=== PATIENT | male | born 1985 | race Caucasian/White ===

== ENCOUNTER 2016-10-10 11:50 | Emergency (ER) | payer OTHER ==
--- NOTE | 2016-10-10 12:30 | DIAGNOSTIC IMAGING REPORT ---
PROCEDURE: XR HAND 3 OR 4 VIEWS - RIGHT INDICATION: TRAUMA/INJURY TECHNIQUE: Four views. COMPARISON: None. FINDINGS: Osseous structures and joint spaces are normal. IMPRESSION: 1. Normal right hand.
--- NOTE | 2016-10-11 02:32 | ED CLINICAL REPORT ---
Clinical Report - Physicians/Mid Levels [facility] [address] [place] [address] 10/10/2016 11:55 Patient: CAITY LAGOS Time Seen: 12:40; initial patient contact. Arrived- By private vehicle. Historian- patient. CPT: ER phys charges level 3 plus (#[id number]). HISTORY OF PRESENT ILLNESS Chief Complaint: Injury to the right ring finger. The injury happened just prior to arrival. Occurred at work. The patient sustained a moderate direct blow (Winch bar flipped back and hit hand.). Patient is experiencing moderate pain. No other injury. REVIEW OF SYSTEMS The patient has had swelling. No tingling, numbness, weakness, foreign body or skin laceration. All systems otherwise negative, except as recorded above. PAST HISTORY See nurses notes. Medications: None. Allergies: None. SOCIAL HISTORY Heavy tobacco smoker (cigarette)- less than 1 pack per day. No alcohol use or drug use. ADDITIONAL NOTES The nursing notes have been reviewed. PHYSICAL EXAM Vital Signs: 10/10/2016 12:03 BP: 152/93. HR: 75. RR: 18. O2 saturation: 100%. Temp: 97.9 F. Pain level now: 6/10. Appearance: Alert. Appears to be in pain. Patient in mild distress. Head: Head atraumatic. Eyes: Pupils equal, round and reactive to light. Eyes normal inspection. Skin: Skin warm. Skin intact. Extremities: Right ring finger: moderate tenderness, mild swelling and small ecchymosis of the PIP joint; limited movement secondary to pain. Neurovascular intact distally. No erythema, laceration, abrasion or deformity. No subungual hematoma or amputation present. No wrist injury. Neuro, Vascular and Tendons: Vascular status intact. Sensation intact. Motor intact. Neuro: Oriented X 3. No motor deficit. No sensory deficit. LABS, X-RAYS, AND EKG X-Rays: Right hand negative. PROGRESS AND PROCEDURES Splint Application: Aluminum-foam splint applied to right ring finger. Splint applied by tech with direct supervision by the ED physician. Reassessed extremity following splint application. Neurovascular intact. Follow-up recommended within 7 days. Patient/family counseled. Disposition: Discharged. Condition: stable. CLINICAL IMPRESSION Contusion to the right ring finger.No right fingernail injury. INSTRUCTIONS Apply ice for 15-20 minutes three times a day for one days followed by moist heat 15-20 minutes three times a day for one weeks until better. Wear aluminum splint until better. Lewis tape fingers until better. Limit use of your right hand until better. Return to work tomorrow (light duty for 2 days . Limit use of right hand while wearing splint.). Warnings: GENERAL WARNINGS: Return or contact your physician immediately if your condition worsens or changes unexpectedly, if not improving as expected, or if other problems arise. OTC Medications: Acetaminophen (available over the counter): take according to label instructions. Motrin (available over the counter): take according to label instructions. Follow-up: Follow up with your doctor in one week. Call for an appointment. Understanding of the discharge instructions verbalized by patient. (Electronically signed by Sukhdeep Enriquez MD 10/10/2016 17:02)
--- NOTE | 2016-10-11 02:32 | ED CLINICAL REPORT ---
Clinical Report - Physicians/Mid Levels [facility] [address] [place] [address] 10/10/2016 11:55 Patient: CAITY LAGOS Time Seen: 12:40; initial patient contact. Arrived- By private vehicle. Historian- patient. CPT: ER phys charges level 3 plus (#[id number]). HISTORY OF PRESENT ILLNESS Chief Complaint: Injury to the right ring finger. The injury happened just prior to arrival. Occurred at work. The patient sustained a moderate direct blow (Winch bar flipped back and hit hand.). Patient is experiencing moderate pain. No other injury. REVIEW OF SYSTEMS The patient has had swelling. No tingling, numbness, weakness, foreign body or skin laceration. All systems otherwise negative, except as recorded above. PAST HISTORY See nurses notes. Medications: None. Allergies: None. SOCIAL HISTORY Heavy tobacco smoker (cigarette)- less than 1 pack per day. No alcohol use or drug use. ADDITIONAL NOTES The nursing notes have been reviewed. PHYSICAL EXAM Vital Signs: 10/10/2016 12:03 BP: 152/93. HR: 75. RR: 18. O2 saturation: 100%. Temp: 97.9 F. Pain level now: 6/10. Appearance: Alert. Appears to be in pain. Patient in mild distress. Head: Head atraumatic. Eyes: Pupils equal, round and reactive to light. Eyes normal inspection. Skin: Skin warm. Skin intact. Extremities: Right ring finger: moderate tenderness, mild swelling and small ecchymosis of the PIP joint; limited movement secondary to pain. Neurovascular intact distally. No erythema, laceration, abrasion or deformity. No subungual hematoma or amputation present. No wrist injury. Neuro, Vascular and Tendons: Vascular status intact. Sensation intact. Motor intact. Neuro: Oriented X 3. No motor deficit. No sensory deficit. LABS, X-RAYS, AND EKG X-Rays: Right hand negative. PROGRESS AND PROCEDURES Splint Application: Aluminum-foam splint applied to right ring finger. Splint applied by tech with direct supervision by the ED physician. Reassessed extremity following splint application. Neurovascular intact. Follow-up recommended within 7 days. Patient/family counseled. Disposition: Discharged. Condition: stable. CLINICAL IMPRESSION Contusion to the right ring finger.No right fingernail injury. INSTRUCTIONS Apply ice for 15-20 minutes three times a day for one days followed by moist heat 15-20 minutes three times a day for one weeks until better. Wear aluminum splint until better. Lewis tape fingers until better. Limit use of your right hand until better. Return to work tomorrow (light duty for 2 days . Limit use of right hand while wearing splint.). Warnings: GENERAL WARNINGS: Return or contact your physician immediately if your condition worsens or changes unexpectedly, if not improving as expected, or if other problems arise. OTC Medications: Acetaminophen (available over the counter): take according to label instructions. Motrin (available over the counter): take according to label instructions. Follow-up: Follow up with your doctor in one week. Call for an appointment. Understanding of the discharge instructions verbalized by patient. (Electronically signed by Sukhdeep Enriquez MD 10/10/2016 17:02)
--- NOTE | 2016-10-11 02:32 | ED ORDER SUMMARY ---
..... Patient: CAITY LAGOS OrderSheet [facility] VisitID: [id number] [address] [place] [address] 30y, M Registration Date/Time: 10/10/2016 ORDER SHEET Weight: 136.0 kg (stated) Allergies: None GENERAL ORDERS: Hand 3 or 4V Right Urgent (12:06 10/10/2016 Lynn Spencer per protocol) (Ack 12:12 KHoerner) (12:12 AARONoerner) MEDICATION ORDERS: IV FLUIDS: ORDER SHEET NOTES: [Electronically signed by Dada Katz R.N. (13:17 10/10/2016)] [Electronically signed by Sukhdeep Enriquez MD (17:02 10/10/2016)] [Electronically locked/signed by Dada Katz R.N. (13:17 10/10/2016)]
--- NOTE | 2016-10-11 02:32 | ED NURSING NOTES ---
Clinical Report - Nurses [facility] [address] [place] [address] 10/10/2016 11:55 Patient: CAITY LAGOS TRIAGE Triage time 12:04. Acuity: LEVEL 4. Chief Complaint: INJURY TO RIGHT HAND. 12:04 10/10/16. 12:10/10/16. Alert. No acute distress. SEPSIS SCREEN: Sepsis Screen. Negative (no infection suspected/documented). FERNANDA COMA SCORE: Mckinney Coma Scale: 15- eyes open spontaneously (4); best verbal response- oriented x 4 (5); best motor response- obeys commands (6). --12:08 Dada Katz R.N. 12:03 10/10/16. BP: 152/93. HR: 75. RR: 18. O2 saturation: 100% on room air. Temp: 97.9 F. Pain level now: 01/12. --12:08 Dada Katz R.N. Weight: 136 kg stated. Height/Length: 70 inches Per Patient. BMI: 43. --12:04 Dada Katz R.N. Medications None. --12:05 Dada Katz R.N. Medication/allergy information source: the patient. --12:08 Dada Katz R.N. Allergies None. --12:05 Dada Katz R.N. History Arrived by private vehicle, and accompanied by family. Primary physician ([facility]). 12:04 10/10/16. This occurred today (0900). Occurred at work. Mechanism of injury: a blow. He has had weakness of the right hand. No numbness. 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 PAST MEDICAL HX: Tetanus status: up-to-date. Immunizations: up-to-date. SOCIAL HX: Current every day light tobacco smoker (cigarette)- less than 1/2 a pack per day. No alcohol use or drug use. No infectious disease exposure. ABUSE ASSESSMENT: No report of abuse. FALL RISK ASSESSMENT: Fall risk assessment completed. No fall risk identified. NUTRITIONAL RISK ASSESSMENT: The nutritional risk assessment revealed no deficiencies. FUNCTIONAL ASSESSMENT: Functional assessment: no impairments noted. LEARNING NEEDS ASSESSMENT: The learning needs assessment revealed no barriers. SKIN INTEGRITY ASSESSMENT: Skin integrity risk assessment completed. No skin integrity risk identified. --12:08 Dada Katz R.N. PROBLEMS: Knee Injury. Pharyngitis. --12:05 Dada Katz R.N. ADDITIONAL SURGERIES: L index finger. --12:05 Dada Katz R.N. Assessment 12:10/10/16. --12:08 Dada Katz R.N. Interventions 12:04 10/10/16. 12:10/10/16. ID and allergy band on patient. To treatment room. --12:08 Dada Katz R.N. PHYSICAL ASSESSMENT 12:10/10/16. Ambulatory to room. GENERAL / NEURO / PSYCH: Oriented X 4. Alert. Appears in no acute distress. EXTREMITIES: Capillary refill is less than 2 seconds in the extremities. Extremity pulses are within normal limits. Extremities exhibit normal ROM. Neuro-vascular status intact to the extremity. Right ring finger: tenderness. SKIN: Skin is warm and dry. --12:06 Dada Katz R.N. NURSING PROGRESS NOTES 12:10/10/16. The plan of care for this patient has been created. Cold pack applied. Extremity elevated. Neuro-vascular extremity check. Reassurance given. Two patient identifiers checked. Call light placed in reach. Side rails up x 2. Bed placed in lowest position. Brakes of bed on. Brakes of chair on. Patient ready for evaluation- chart flagged. --12:06 Dada Katz R.N. 12:10/10/16. Patient ready for evaluation- ED physician notified. --12:06 Dada Katz R.N. 12:10/10/16. ( X-ray completed). --12:22 Dada Katz R.N. ( minda taped ring finger and small finger . Applied alumb. splint ,held with coban.). --12:48 Duane, Elva, MONIKA Tech1. DISPOSITION / DISCHARGE 13:13 10/10/16. Condition at departure: improved. The goals identified in the patient's plan of care were met. No learning barriers present. Discharge instructions provided and reviewed with the patient. Reviewed warnings. Reviewed medication(s). Treatments reviewed. Patient verbalized understanding. Written instructions provided in Yi. The patient was discharged by the physician. He was discharged home. He left the Emergency Department ambulatory and via private vehicle. Patient driving. FALL RISK ASSESSMENT: Fall risk assessment completed. No fall risk identified. --13:13 Dada Katz R.N. 13:12 10/10/16. BP: 148/92. HR: 72. RR: 14. O2 saturation: 99% on room air. Temp: 98.1 F (oral). Pain level now: 10/12. --13:13 Dada Katz R.N. 13:14 10/10/16. Departure time: 13:13. --13:14 Dada Katz R.N. Locked/Released at 10/10/2016 13:17 by Dada Katz R.N.
--- NOTE | 2016-10-11 02:32 | ED NURSING NOTES ---
Clinical Report - Nurses [facility] [address] [place] [address] 10/10/2016 11:55 Patient: CAITY LAGOS TRIAGE Triage time 12:04. Acuity: LEVEL 4. Chief Complaint: INJURY TO RIGHT HAND. 12:04 10/10/16. 12:10/10/16. Alert. No acute distress. SEPSIS SCREEN: Sepsis Screen. Negative (no infection suspected/documented). FERNANDA COMA SCORE: Clune Coma Scale: 15- eyes open spontaneously (4); best verbal response- oriented x 4 (5); best motor response- obeys commands (6). --12:08 Dada Katz R.N. 12:03 10/10/16. BP: 152/93. HR: 75. RR: 18. O2 saturation: 100% on room air. Temp: 97.9 F. Pain level now: 01/12. --12:08 Dada Katz R.N. Weight: 136 kg stated. Height/Length: 70 inches Per Patient. BMI: 43. --12:04 Dada Katz R.N. Medications None. --12:05 Dada Katz R.N. Medication/allergy information source: the patient. --12:08 Dada Katz R.N. Allergies None. --12:05 Dada Katz R.N. History Arrived by private vehicle, and accompanied by family. Primary physician ([facility]). 12:04 10/10/16. This occurred today (0900). Occurred at work. Mechanism of injury: a blow. He has had weakness of the right hand. No numbness. 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 PAST MEDICAL HX: Tetanus status: up-to-date. Immunizations: up-to-date. SOCIAL HX: Current every day light tobacco smoker (cigarette)- less than 1/2 a pack per day. No alcohol use or drug use. No infectious disease exposure. ABUSE ASSESSMENT: No report of abuse. FALL RISK ASSESSMENT: Fall risk assessment completed. No fall risk identified. NUTRITIONAL RISK ASSESSMENT: The nutritional risk assessment revealed no deficiencies. FUNCTIONAL ASSESSMENT: Functional assessment: no impairments noted. LEARNING NEEDS ASSESSMENT: The learning needs assessment revealed no barriers. SKIN INTEGRITY ASSESSMENT: Skin integrity risk assessment completed. No skin integrity risk identified. --12:08 Dada Katz R.N. PROBLEMS: Knee Injury. Pharyngitis. --12:05 Dada Katz R.N. ADDITIONAL SURGERIES: L index finger. --12:05 Dada Katz R.N. Assessment 12:10/10/16. --12:08 Dada Katz R.N. Interventions 12:04 10/10/16. 12:10/10/16. ID and allergy band on patient. To treatment room. --12:08 Dada Katz R.N. PHYSICAL ASSESSMENT 12:10/10/16. Ambulatory to room. GENERAL / NEURO / PSYCH: Oriented X 4. Alert. Appears in no acute distress. EXTREMITIES: Capillary refill is less than 2 seconds in the extremities. Extremity pulses are within normal limits. Extremities exhibit normal ROM. Neuro-vascular status intact to the extremity. Right ring finger: tenderness. SKIN: Skin is warm and dry. --12:06 Dada Katz R.N. NURSING PROGRESS NOTES 12:10/10/16. The plan of care for this patient has been created. Cold pack applied. Extremity elevated. Neuro-vascular extremity check. Reassurance given. Two patient identifiers checked. Call light placed in reach. Side rails up x 2. Bed placed in lowest position. Brakes of bed on. Brakes of chair on. Patient ready for evaluation- chart flagged. --12:06 Dada Katz R.N. 12:10/10/16. Patient ready for evaluation- ED physician notified. --12:06 Dada Katz R.N. 12:10/10/16. ( X-ray completed). --12:22 Dada Katz R.N. ( minda taped ring finger and small finger . Applied alumb. splint ,held with coban.). --12:48 Duane, Elva, MONIKA Tech1. DISPOSITION / DISCHARGE 13:13 10/10/16. Condition at departure: improved. The goals identified in the patient's plan of care were met. No learning barriers present. Discharge instructions provided and reviewed with the patient. Reviewed warnings. Reviewed medication(s). Treatments reviewed. Patient verbalized understanding. Written instructions provided in Yoruba. The patient was discharged by the physician. He was discharged home. He left the Emergency Department ambulatory and via private vehicle. Patient driving. FALL RISK ASSESSMENT: Fall risk assessment completed. No fall risk identified. --13:13 Dada Katz R.N. 13:12 10/10/16. BP: 148/92. HR: 72. RR: 14. O2 saturation: 99% on room air. Temp: 98.1 F (oral). Pain level now: 10/12. --13:13 Dada Katz R.N. 13:14 10/10/16. Departure time: 13:13. --13:14 Dada Katz R.N. Locked/Released at 10/10/2016 13:17 by Dada Katz R.N.
--- NOTE | 2016-10-11 02:32 | ED ORDER SUMMARY ---
..... Patient: CAITY LAGOS OrderSheet [facility] VisitID: [id number] [address] [place] [address] 30y, M Registration Date/Time: 10/10/2016 ORDER SHEET Weight: 136.0 kg (stated) Allergies: None GENERAL ORDERS: Hand 3 or 4V Right Urgent (12:06 10/10/2016 Lynn Spencer per protocol) (Ack 12:12 KHoerner) (12:12 AARONoerner) MEDICATION ORDERS: IV FLUIDS: ORDER SHEET NOTES: [Electronically signed by Dada Katz R.N. (13:17 10/10/2016)] [Electronically signed by Sukhdeep Enriquez MD (17:02 10/10/2016)] [Electronically locked/signed by Dada Katz R.N. (13:17 10/10/2016)]
--- NOTE | 2016-10-11 02:35 | ED MAR SUMMARY ---
..... Medication Administration Record [facility] [address] [place], [place] [id number] Patient: CAITY LAGOS Visit ID: [id number] 30y, M Weight: 136.0 kg Height/Length: 70 in BMI: 43 ALLERGIES: None
--- NOTE | 2016-10-11 02:35 | ED DISCHARGE INSTRUCTIONS ---
Patient: CAITY LAGOS General Instructions [facility] VisitID: [id number] [address] [place] [address] 30y, M Registration Date/Time: 10/10/2016 Contusion to the right ring finger.No right fingernail injury. INSTRUCTIONS Apply ice for 15-20 minutes three times a day for one days followed by moist heat 15-20 minutes three times a day for one weeks until better. Wear aluminum splint until better. Lewis tape fingers until better. Limit use of your right hand until better. Return to work tomorrow (light duty for 2 days . Limit use of right hand while wearing splint.). Warnings: GENERAL WARNINGS: Return or contact your physician immediately if your condition worsens or changes unexpectedly, if not improving as expected, or if other problems arise. OTC Medications: Acetaminophen (available over the counter): take according to label instructions. Motrin (available over the counter): take according to label instructions. Follow-up: Follow up with your doctor in one week. Call for an appointment. Understanding of the discharge instructions verbalized by patient. ADDITIONAL INFORMATION Contusion,Soft Tissue You have a CONTUSION, which is a bruise with swelling and some bleeding under the skin. There are no broken bones. This injury takes a few days to a few weeks to heal. Home Care: 1) Keep the injured part elevated to reduce pain and swelling. This is especially important during the first 48 hours. 2) Make an ice pack (ice cubes in a plastic bag, wrapped in a towel) and apply for 20 minutes every 1-2 hours the first day. Continue this 3-4 times a day until the pain and swelling goes away. 3) You may use acetaminophen (Tylenol) or ibuprofen (Motrin, Advil) to control pain, unless another pain medicine was prescribed. [ NOTE : If you have chronic liver or kidney disease or ever had a stomach ulcer or GI bleeding, talk with your doctor before using these medicines.] Follow Up with your doctor or this facility if you are not improving within the next THREE days. [NOTE: If X-rays were taken, they will be reviewed by a radiologist. You will be notified of any new findings that may affect your care.] Get Prompt Medical Attention if any of the following occur: -- Pain or swelling increases -- Injured arm or leg becomes cold, blue, numb or tingly -- Redness, warmth or drainage from the skin You have been given the following additional information: Contusion, Soft Tissue Limit use of your right hand until better. Return to work tomorrow (light duty for 2 days . Limit use of right hand while wearing splint.). (Electronically signed by Sukhdeep Enriquez MD 10/10/2016 17:02)
--- NOTE | 2016-10-11 02:35 | ED MAR SUMMARY ---
..... Medication Administration Record [facility] [address], [place] [id number] Patient: CAITY LAGOS Visit ID: [id number] 30y, M Weight: 136.0 kg Height/Length: 70 in BMI: 43 ALLERGIES: None
--- NOTE | 2016-10-11 02:35 | ED MED RECONCILIATION SUMMARY ---
Patient: CAITY LAGOS Medication Reconciliation Report [facility] VisitID: [id number] [address] [place] [address] 30y, M Registration Date/Time: 10/10/2016 Weight: 136.0 kg Height/Length: 70 in. BMI: 43.0 ALLERGIES: None The patient's Home Medications are listed below: NONE. The source(s) of the original Home Medication information: patient The following Medications were given to the patient in the Emergency Department: None. The following Medications were prescribed to the patient: Acetaminophen (available over the counter): take according to label instructions. -- Sukhdeep Enriquez MD Motrin (available over the counter): take according to label instructions. -- Sukhdeep Enriquez MD
--- NOTE | 2016-10-11 02:35 | ED MED RECONCILIATION SUMMARY ---
Patient: CAITY LAGOS Medication Reconciliation Report [facility] VisitID: [id number] [address] [place] [address] 30y, M Registration Date/Time: 10/10/2016 Weight: 136.0 kg Height/Length: 70 in. BMI: 43.0 ALLERGIES: None The patient's Home Medications are listed below: NONE. The source(s) of the original Home Medication information: patient The following Medications were given to the patient in the Emergency Department: None. The following Medications were prescribed to the patient: Acetaminophen (available over the counter): take according to label instructions. -- Sukhdeep Enriquez MD Motrin (available over the counter): take according to label instructions. -- Sukhdeep Enriquez MD
== END 2016-10-10 13:13 | disposition home or self-care (01) ==
LOC: ED SRH 11:50
DX: S60.041A Contusion of right ring finger without damage to nail, initial encounter (principal); W22.8XXA Striking against or struck by other objects, initial encounter; Y93.9 Activity, unspecified; Y92.89 Other specified places as the place of occurrence of the external cause; Y99.0 Civilian activity done for income or pay; F17.210 Nicotine dependence, cigarettes, uncomplicated